=== PATIENT | female | born 1990 ===

== ENCOUNTER → 2018-09-04 | Outpatient (REF) | payer OTHER, BC ==
[2018-09-09 14:09] LABS: HPV HYBRID CAPTURE II Positive (Negative)
== END ==
LOC: M LAB LCGH 11:37
PROVIDERS: ATTEND Nurse Practitioner Adult Health
DX: Z12.4 Encounter for screening for malignant neoplasm of cervix (principal)

== ENCOUNTER → 2018-09-15 | Outpatient (REF) | payer OTHER, BC | LOC: M LAB LCGH 15:35 | PROVIDERS: ATTEND Obstetrics & Gynecology | DX: D48.5 Neoplasm of uncertain behavior of skin (principal) ==

== ENCOUNTER → 2021-07-27 | Outpatient (REF) | payer OTHER, BC ==
[2021-07-27 17:28] LABS: HCG, SERUM QUANTITATIVE < 1.0 MIU/ML
== END ==
LOC: M LAB REF 16:20
DX: N80.9 Endometriosis, unspecified (principal); O62.4 Hypertonic, incoordinate, and prolonged uterine contractions